=== PATIENT | female | born 1995 | race African-American/Black ===

== ENCOUNTER 2017-05-14 22:35 | Emergency (ER) | payer SELFPAY ==
[~2017-05-14] VITALS: Ht 152.4 cm; Wt 49.4 kg
[2017-05-14] MEDS: fentaNYL PF VIAL 100 MCG/2 ML VIAL IV PRN (23:36)
[2017-05-14 23:41] LABS: BASO # 0.1 x10^3/uL (0.0-0.2); BASO % 1 % (0-3); EOS % 0 % (0-3); HEMATOCRIT 40.7 % (36.0-47.0); HEMOGLOBIN 13.1 g/dL (12.0-15.5); LYMPH # 0.8 x10^3/uL (1.0-4.8); LYMPH % 7 % (24-48); MEAN CORPUSCULAR HEMOGLOBIN 27 pg (25-35); MEAN CORPUSCULAR HGB CONC 32 g/dL (31-37); MEAN CORPUSCULAR VOLUME 85 fL (79-100); MONO % 3 % (0-9); NEUT % 90 % (31-73); PLATELET COUNT 324 x10^3/uL (140-400); RED BLOOD COUNT 4.81 x10^6/uL (3.50-5.40); RED CELL DISTRIBUTION WIDTH 12.6 % (11.5-14.5)
[2017-05-14 23:43] LABS: BILIRUBIN,URINE NEGATIVE (NEG); GLUCOSE,URINE NEGATIVE (NEG); NITRITE,URINE NEGATIVE (NEG); PROTEIN,URINE 100 mg/dL (NEG-TRACE); UROBILINOGEN,URINE 0.2 mg/dL (0.2 mg/dL)
[2017-05-14] MEDS ORDERED: ONDANSETRON PF 4 MG/2 ML VIAL. IV ONE (23:45)
[2017-05-14] MEDS ORDERED: CONTRAST GIVEN MC PRN (23:45)
[2017-05-14] MEDS ORDERED: IOHEXOL 300 MG/ML 75 ML VIAL IV ONE (23:45)
[2017-05-14] MEDS ORDERED: IV NORMAL SALINE 1000ML BAG 1,000 ML IV ONE (23:45)
[2017-05-14 23:49] LABS: CREATININE 0.9 mg/dL (0.6-1.0); GFR 97.6; POTASSIUM 4.5 mmol/L (3.5-5.1)
[2017-05-14 23:53] LABS: BACTERIA,URINE 0 /HPF (0-FEW); SQUAMOUS EPITHELIAL CELL,UR FEW /LPF; WBC,URINE OCC /HPF (0-4)
[2017-05-14 23:57] LABS: ALBUMIN 4.7 g/dL (3.4-5.0); ALBUMIN/GLOBULIN RATIO 1.1 (1.0-1.7); TOTAL BILIRUBIN 0.5 mg/dL (0.2-1.0); TOTAL PROTEIN 8.9 g/dL (6.4-8.2)
[2017-05-15 00:13] VITALS: BP 141/94
[2017-05-15] MEDS: fentaNYL PF VIAL 100 MCG/2 ML VIAL IV PRN ×2 (00:20→01:12)
--- NOTE | 2017-05-15 02:11 | RAD ---
INDICATION: SEVERE DIFFUSE ABDOMEN PAIN AND VOMITING COMPARISON: None. TECHNIQUE: Axial CT images were obtained through the abdomen and pelvis with intravenous contrast. One or more of the following individualized dose reduction techniques were utilized for this examination: 1. Automated exposure control; 2. Adjustment of the mA and/or kV according to patient size; 3. Use of iterative reconstruction technique. FINDINGS: Abdomen: Chest Base: Partially imaged without gross abnormality. Vessels: No abdominal aortic aneurysm. Liver/Biliary: Mild suspected periportal edema. Pancreas: No peripancreatic edema. Spleen: Normal. Kidneys/Adrenal: No hydronephrosis. GI: Free fluid is seen within the pelvis. No dilated loops of bowel to suggest obstruction. The appendix is not well seen given lack of oral contrast and lack of intra-abdominal fat Pelvis: Bladder: No definite adjacent inflammation. IMPRESSION: 1. No evidence of bowel obstruction. 2. Small free fluid in the pelvis. 3. The appendix is not well seen. 4. There may be some mild periportal edema. Could be from the patient's hydration status but would correlate with hepatic enzymes to ensure there is not alternative causes such as hepatic inflammation. Electronically signed by: Leo Diaz MD (05/15/2017 2:07 AM)
[2017-05-15] MEDS ORDERED: ONDA4TAB10 SL (02:20)
--- NOTE | 2017-05-15 02:21 | PHYS DOC ---
Past Medical History Past Medical History: No Pertinent History Past Surgical History: No Surgical History Alcohol Use: None Drug Use: None Adult General Chief Complaint Chief Complaint: ABDOMINAL PAIN HPI HPI Patient is a 21 year old female who presents with abdominal pain. The patient reports onset of pain this morning, severe and diffuse. Reports 30 episodes of vomiting and diarrhea. Not tolerating oral intake. Denies fevers or chills, hematemesis, hematochezia or melena, dysuria or hematuria. Reports she is on her menstrual cycle. Denies previous history of similar pain or exposure to anyone with similar symptoms. Previously healthy, no abdominal surgeries. Review of Systems Review of Systems Constitutional: Denies fever or chills Eyes: Denies change in visual acuity HENT: Denies nasal congestion or sore throat Respiratory: Denies cough or shortness of breath Cardiovascular: Denies chest pain or edema GI: Reports abdominal pain, nausea, vomiting, and diarrhea, denies bloody stools : Denies dysuria or hematuria Musculoskeletal: Denies back pain or joint pain Integument: Denies rash or skin lesions Neurologic: Denies headache, focal weakness or sensory changes Current Medications Current Medications Current Medications Medications (Trade) Dose Ordered Sig/Karan Start Time Stop Time Status Last Admin Dose Admin Fentanyl Citrate (Fentanyl 2ml Vial) 50 mcg PRN Q15MIN PRN 05/14/17 23:30 05/15/17 23:29 05/15/17 01:12 50 MCG Info (Do NOT chart on this entry -- for MONITORING) 1 each PRN DAILY PRN 05/14/17 23:45 05/16/17 23:44 Iohexol (Omnipaque 300 Mg/ml) 75 ml 1X ONCE 05/14/17 23:45 05/14/17 23:46 DC 05/15/17 00:23 75 ML Ondansetron HCl (Zofran) 4 mg 1X ONCE 05/14/17 23:45 05/14/17 23:46 DC 05/14/17 23:36 4 MG Sodium Chloride 1,000 ml @ 1,000 mls/hr 1X ONCE 05/14/17 23:45 05/15/17 00:44 DC 05/14/17 23:37 1,000 MLS/HR Allergies Allergies Allergies Coded Allergies Type Severity Reaction Last Updated Verified No Known Drug Allergies 05/14/17 No Physical Exam Physical Exam Constitutional: Well developed, well nourished, appears uncomfortable, writhing in pain, non-toxic appearance. HENT: Normocephalic, atraumatic, bilateral external ears normal, oropharynx dry , nose normal. Eyes: PERRLA, EOMI, conjunctiva normal, no discharge. Neck: supple, no stridor. Cardiovascular: RRR, no murmurs, no edema. Lungs & Thorax: LCTAB, no wheezing, no respiratory distress. Abdomen: Normal bowel sounds, soft, moderate diffuse tenderness, voluntary guarding throughout, no rebound tenderness, no masses or pulsatile masses, nondistended. Skin: Warm, dry, no erythema, no rash. Back: No CVA tenderness. Extremities: No tenderness, no edema. Neurologic: Alert and oriented X 3, no focal deficits noted. Psychologic: Affect normal, judgement normal, mood normal. Current Patient Data Vital Signs Vital Signs Date Time Temp Pulse Resp B/P (MAP) Pulse Ox O2 Delivery O2 Flow Rate FiO2 05/15/17 01:12 20 05/15/17 00:13 48 141/94 (110) 100 Room Air 05/14/17 23:26 99.8 99.8 Lab Values Laboratory Tests Test 05/14/17 22:24 05/14/17 23:13 05/14/17 23:20 POC Urine HCG, Qualitative Hcg negative (Negative) Urine Collection Type Unknown Urine Color Yellow Urine Clarity Clear Urine pH 7.0 Urine Specific [place] >=1.030 Urine Protein 100 mg/dL (NEG-TRACE) Urine Glucose (UA) Negative mg/dL (NEG) Urine Ketones (Stick) 15 mg/dL (NEG) Urine Blood Negative (NEG) Urine Nitrite Negative (NEG) Urine Bilirubin Negative (NEG) Urine Urobilinogen Dipstick 0.2 mg/dL (0.2 mg/dL) Urine Leukocyte Esterase Trace (NEG) Urine RBC 11-20 /HPF (0-2) Urine WBC Occ /HPF (0-4) Urine Squamous Epithelial Cells Few /LPF Urine Bacteria 0 /HPF (0-FEW) Urine Mucus Marked /LPF White Blood Count 11.0 x10^3/uL (4.0-11.0) Red Blood Count 4.81 x10^6/uL (3.50-5.40) Hemoglobin 13.1 g/dL (12.0-15.5) Hematocrit 40.7 % (36.0-47.0) Mean Corpuscular Volume 85 fL (79-100) Mean Corpuscular Hemoglobin 27 pg (25-35) Mean Corpuscular Hemoglobin Concent 32 g/dL (31-37) Red Cell Distribution Width 12.6 % (11.5-14.5) Platelet Count 324 x10^3/uL (140-400) Neutrophils (%) (Auto) 90 % (31-73) H Lymphocytes (%) (Auto) 7 % (24-48) L Monocytes (%) (Auto) 3 % (0-9) Eosinophils (%) (Auto) 0 % (0-3) Basophils (%) (Auto) 1 % (0-3) Neutrophils # (Auto) 9.9 x10^3uL (1.8-7.7) H Lymphocytes # (Auto) 0.8 x10^3/uL (1.0-4.8) L Monocytes # (Auto) 0.3 x10^3/uL (0.0-1.1) Eosinophils # (Auto) 0.0 x10^3/uL (0.0-0.7) Basophils # (Auto) 0.1 x10^3/uL (0.0-0.2) Platelet Estimate Pending Sodium Level 140 mmol/L (136-145) Potassium Level 4.5 mmol/L (3.5-5.1) Chloride Level 104 mmol/L (98-107) Carbon Dioxide Level 26 mmol/L (21-32) Anion Gap 10 (6-14) Blood Urea Nitrogen 13 mg/dL (7-20) Creatinine 0.9 mg/dL (0.6-1.0) Estimated GFR (Cockcroft-Gault) 97.6 BUN/Creatinine Ratio 14 (6-20) Glucose Level 112 mg/dL (70-99) H Calcium Level 10.0 mg/dL (8.5-10.1) Total Bilirubin 0.5 mg/dL (0.2-1.0) Aspartate Amino Transferase (AST) 24 U/L (15-37) Alanine Aminotransferase (ALT) 19 U/L (14-59) Alkaline Phosphatase 72 U/L (46-116) Total Protein 8.9 g/dL (6.4-8.2) H Albumin 4.7 g/dL (3.4-5.0) Albumin/Globulin Ratio 1.1 (1.0-1.7) Lipase 74 U/L (73-393) Laboratory Tests 05/14/17 23:20 Laboratory Tests 05/14/17 23:20 EKG EKG [] Radiology/Procedures Radiology/Procedures PROCEDURE: CT ABD PELV W/ IV CONTRST ONLY INDICATION: SEVERE DIFFUSE ABDOMEN PAIN AND VOMITING COMPARISON: None. TECHNIQUE: Axial CT images were obtained through the abdomen and pelvis with intravenous contrast. One or more of the following individualized dose reduction techniques were utilized for this examination: 1. Automated exposure control; 2. Adjustment of the mA and/or kV according to patient size; 3. Use of iterative reconstruction technique. FINDINGS: Abdomen: Chest Base: Partially imaged without gross abnormality. Vessels: No abdominal aortic aneurysm. Liver/Biliary: Mild suspected periportal edema. Pancreas: No peripancreatic edema. Spleen: Normal. Kidneys/Adrenal: No hydronephrosis. GI: Free fluid is seen within the pelvis. No dilated loops of bowel to suggest obstruction. The appendix is not well seen given lack of oral contrast and lack of intra-abdominal fat Pelvis: Bladder: No definite adjacent inflammation. IMPRESSION: 1. No evidence of bowel obstruction. 2. Small free fluid in the pelvis. 3. The appendix is not well seen. 4. There may be some mild periportal edema. Could be from the patient's hydration status but would correlate with hepatic enzymes to ensure there is not alternative causes such as hepatic inflammation. Electronically signed by: Maria Esther Robles MD (05/15/2017 2:07 AM) DICTATED and SIGNED BY: MARIA ESTHER ROBLES MD DATE: 05/15/17 0152 [] Course & Med Decision Making Course & Med Decision Making Pertinent Labs and Imaging studies reviewed. (See chart for details) The patient presents with abdominal pain and vomiting. Give IV fluids, Zofran, pain medication. UA shows blood which is consistent with menses. No significant lab abnormalities. Her pain was severe. Obtained CT of the abdomen and pelvis which showed no definite acute abnormality. There was questionable. Portal edema , no abnormalities of LFTs. I reassessed the patient. She is resting comfortably , tolerating oral intake, no complaints. [place] better and was comfortable with discharge home. Recommend rest, by mouth hydration with small sips of clear liquids, gave prescription for Zofran to take as needed for nausea, take Tylenol or ibuprofen for pain or fever. Follow-up with Dr. Matute in the primary care clinic if not improving in 2-3 days, otherwise not emergently for follow-up regarding abnormal CT results. Return to the emergency department for high fever, severe pain, uncontrolled vomiting, any otherwise worsening condition. Discharged home in stable condition. [] Dragon Disclaimer Dragon Disclaimer This electronic medical record was generated, in whole or in part, using a voice recognition dictation system. Departure Departure Impression: Primary Impression: Abdominal pain Additional Impression: Nausea and vomiting Disposition: HOME, SELF-CARE Condition: STABLE Referrals: NO PCP (PCP) KARY MATUTE MD Patient Instructions: Abdominal Pain, [id number] Additional Instructions: You were seen in the emergency department today for abdominal pain. Tests did not show a serious cause of symptoms. This is likely a virus and will get better within the next few days. Please rest, drink small sips of clear liquids to stay hydrated. Drink water or Gatorade. Take Zofran as needed for nausea. Use Tylenol or ibuprofen for pain or fever. Follow-up with Dr. Matute in the primary care clinic in 2-3 days if not improving. Return to the emergency department for high fever, severe pain, uncontrolled vomiting, any otherwise worsening condition. Scripts Ondansetron (ZOFRAN ODT) 4 Mg Tab.rapdis 1 TAB SL Q8HRS Y for NAUSEA/VOMITING, #10 TAB Prov: FARHAD SAINI MD 05/15/17 Problem Qualifiers FARHAD SAINI MD May 15, 2017 02:21
[2017-05-15 04:43] LABS: PLT ESTIMATE ADEQUATE (ADEQUATE)
--- NOTE | 2017-05-15 06:21 | EKG ---
[facility] [address] [place] [address] Test Date: 2017-05-15 Test Time: 00:14:42 Pat Name: FABIANO ZAVALA Department: Room: Gender: F [employer]: : [id number] Requested By: FARHAD SAINI Order Number: [id number] Reading MD: Dandre Sewell Measurements Intervals [place] Rate: 53 P: 56 SC: 128 QRS: 88 QRSD: 88 T: 64 QT: 448 QTc: 423 Interpretive Statements SINUS RHYTHM ATRIAL PREMATURE COMPLEX(ES) OTHERWISE NORMAL ECG RI6.01 No previous ECG available for comparison Electronically Signed On 05-15-2017 11:08:45 CDT by Dandre Sewell
== END 2017-05-15 02:40 | disposition home or self-care (01) ==
LOC: ER 22:35
DX: R10.84 Generalized abdominal pain (principal); R11.2 Nausea with vomiting, unspecified; R19.7 Diarrhea, unspecified
CPT/HCPCS: 36415; 74177; 80053; 81001; 81025; 83690; 85007; 85027; 87086; 93005; 96361; 96374; 96375; 96376; 99285; J2405; J3010; J7030; Q9967